=== PATIENT | female | born 1995 | race Caucasian/White ===

== ENCOUNTER 2022-07-27 03:32 | Inpatient (IN) | payer OTHER, SELFPAY ==
[2022-07-27] VITALS (72 sets, daily range): BP systolic 85–142; BP diastolic 30–106; PULSE 56–188; RESP 16–18; TEMP 36.4–37.1; O2SAT 95–100; BMI 36.6
[2022-07-27 04:23] LABS: Basophils Percent Auto 0.3 % (0.2-1.2); Eosinophils Absolute Auto 0.1 K/mm3 (0-0.3); Eosinophils Percent Auto 0.7 % (0-4.4); Hematocrit 35.1 % (37.0-47.0); Immature Granulocyte Absolute 0.09 K/mm3 (0.00-0.031); Immature Granulocyte Percent A 0.8 % (0-0.5); Lymphocytes Absolute Auto 1.54 K/mm3 (0.9-3.2); Mean Corpuscular HGB Conc 34.2 g/dl (32-36); Mean Corpuscular Hemoglobin 31.7 pg (26-34); Mean Corpuscular Volume 92.9 fl (80-100); Mean Platelet Volume 10.6 fl (7.4-10.4); Monocytes Absolute Auto 0.7 K/mm3 (0.1-0.6); Monocytes Percent Auto 6.1 % (2.6-8.5); Neutrophils Absolute Auto 9.4 K/mm3 (1.3-6.7); Neutrophils Percent Auto 79.1 % (45.5-73.1); Platelet Count Result 244 k/mm3 (150-375); Red Blood Count 3.78 M/mm3 (4.2-5.4); Red Cell Distribution Width 12.7 % (11.5-14.5); White Blood Count 11.9 K/mm3 (4.5-10.0)
[2022-07-27] MEDS: LACTATED RINGERS 1,000 ML 125 ML IV CONT ×2 (08:20→13:48)
[2022-07-27] MEDS: OXYTOCIN 30 UNITS/NS 500 ML 30 UNITS/500 ML BAG IV CONT (08:20)
--- NOTE | 2022-07-27 10:18 | P.HP_ITS ---
H&P: HPI History of Present Illness Date/Time: 07/27/22 10:18 Chief Complaint: SROM Narrative: presented with SROM at 0200. uncomplicated. gbs neg. pitocin started at 0800 for no cervical change from 0600. Review of Systems Review of Systems: All systems reviewed & are unremarkable except as noted in HPI and below [facility] Family History Family History (Updated 07/16/22 @ 14:37 by Lizzeth Donis RN) Father Lung cancer Mother Heart attack Other Unknown family medical history Social History Social History Smoking status: Former smoker Tobacco type: cigarettes Second hand tobacco smoke exposure: No Substance use: never Lack of Transportation: No Lack of Food: Never True Current Housing: I Have Housing Concerned About Future Housing: No Difficulty Paying Gas/Electric Bills: No Difficulty Paying for Meds: No Currently Unemployed: No Education: High School Diploma/GED Difficulty w/ Childcare or Family Care: No Spiritual care concerns: No Meds Home Medications and Allergies Home Medications Medication Instructions Recorded Confirmed Type vit#24-iron amino acid 1 tablet PO DAILY 07/16/22 07/27/22 History chelat-folic acid 30 mg-975 mcg tablet Allergies Allergy/AdvReac Type Severity Reaction Status Date / Time No Known Allergies Allergy Verified 07/27/22 04:17 Vital Signs Vital Signs - 24 hr 07/27/22 03:41 07/27/22 04:00 07/27/22 06:38 Temperature 97.7 F 97.6 F Pulse Rate 103 H Blood Pressure 121/74 Oxygen Delivery 07/27/22 08:22 07/27/22 09:04 07/27/22 04:09 Temperature 97.6 F Pulse Rate 71 Blood Pressure 131/97 H Oxygen Delivery Room Air Exam Const: General: no acute distress Resp: Effort & Inspection: normal respiratory effort Auscultation: clear to auscultation bilaterally Cardio: Rate: regular rate Rhythm: regular rhythm GI: GI Palp: Yes Soft to palpation Extrem: General: normal to inspection H&P: Results Labs Labs: Short CBC 07/27/22 Range/Units 04:19 WBC 11.9 H (4.5-10.0) K/mm3 Hgb 12.0 (12.0-15.0) g/dL Hct 35.1 L (37.0-47.0) % Plt Count 244 (150-375) k/mm3 Assessment and Plan Assessment and plan (1) SROM (spontaneous rupture of membranes): Status: Acute Plan gbs neg pitocin augmentation FHT category 1 anticipate
[2022-07-27] MEDS: ACETAMINOPHEN 500 MG TABLET 1000 MG PO (11:54)
[2022-07-27] MEDS: fentaNYL CITRATE INJ (*CRX) 100 MCG/2 ML VIAL IV PUSH (13:35)
--- NOTE | 2022-07-27 13:49 | WPDANESEPP ---
Anes - Eval Pre Procedure Procedure: Labor Pain Management Date/Time: 07/27/22 13:49 Surgeon: Fabian Preop Diagnosis: Pain during labor Pre Op Diagnosis: Ruptured membranes Patient Data Age: 27 Gender: F Height: 1.57 m Weight: 90.9 kg Last Vital Signs Temp 97.8 F 07/27/22 13:30 Pulse 71 07/27/22 13:41 BP 115/54 L 07/27/22 13:41 Pulse Ox 99 07/27/22 13:47 O2 Del Method Room Air 07/27/22 04:09 Allergies Allergy/AdvReac Type Severity Reaction Status Date / Time No Known Allergies Allergy Verified 07/27/22 04:17 Home Medications Medication Instructions Recorded Confirmed Type vit#24-iron amino acid 1 tablet PO DAILY 07/16/22 07/27/22 History chelat-folic acid 30 mg-975 mcg tablet Laboratory Tests 07/27/22 07/27/22 07/27/22 04:19 04:19 04:19 WBC 11.9 K/mm3 H K/mm3 (4.5-10.0) RBC 3.78 M/mm3 L M/mm3 (4.2-5.4) Hgb 12.0 g/dL g/dL (12.0-15.0) Hct 35.1 % L % (37.0-47.0) MCV 92.9 fl fl (80-100) MCH 31.7 pg pg (26-34) MCHC 34.2 g/dl g/dl (32-36) RDW 12.7 % % (11.5-14.5) Plt Count 244 k/mm3 k/mm3 (150-375) MPV 10.6 fl H fl (7.4-10.4) Immature Gran % (Auto) 0.8 % H % (0-0.5) Neut % (Auto) 79.1 % H % (45.5-73.1) Lymph % (Auto) 13.0 % L % (18.3-44.2) [place] % (Auto) 6.1 % % (2.6-8.5) Eos % (Auto) 0.7 % % (0-4.4) Baso % (Auto) 0.3 % % (0.2-1.2) Lymph # (Auto) 1.54 K/mm3 K/mm3 (0.9-3.2) [place] # (Auto) 0.7 K/mm3 H K/mm3 (0.1-0.6) Eos # (Auto) 0.1 K/mm3 K/mm3 (0-0.3) Baso # (Auto) 0.0 K/mm3 K/mm3 (0.0-0.1) Abs Immat Gran (auto) 0.09 K/mm3 H K/mm3 (0.00-0.031) Absolute Neuts (auto) 9.4 K/mm3 H K/mm3 (1.3-6.7) Absolute Nucleated RBC 0.0 K/mm3 K/mm3 (0.0-0.012) Nucleated RBC % 0.0 % % (0.0-0.2) RPR Pending Blood Type O Positive Antibody Screen Negative Patient hx anesthesia problems: none Family hx anesthesia problems: none Results Review: All pre-operative results and documents have been reviewed as part of the pre-operative evaluation. [facility] Past Medical History Medical History (Updated 07/27/22 @ 13:51 by Esperanza Martinez CRNA) Tobacco abuse Family History Family History (Updated 07/16/22 @ 14:37 by Lizzeth Donis RN) Father Lung cancer Mother Heart attack Other Unknown family medical history Social History Social History Smoking status: Former smoker Tobacco type: cigarettes Second hand tobacco smoke exposure: No Substance use: never Lack of Transportation: No Lack of Food: Never True Current Housing: I Have Housing Concerned About Future Housing: No Difficulty Paying Gas/Electric Bills: No Difficulty Paying for Meds: No Currently Unemployed: No Education: High School Diploma/GED Difficulty w/ Childcare or Family Care: No Spiritual care concerns: No Exam Day of Procedure 07/27/22 13:49
--- NOTE | 2022-07-27 13:52 | WPDANESEPP ---
Anes - Eval Pre Procedure Procedure: labor pain management Date/Time: 07/27/22 13:52 Surgeon: francisco Preop Diagnosis: pain during labor Pre Op Diagnosis: Ruptured membranes Patient Data Age: 27 Gender: F Height: 1.57 m Weight: 90.9 kg Last Vital Signs Temp 97.8 F 07/27/22 13:30 Pulse 71 07/27/22 13:41 BP 115/54 L 07/27/22 13:41 Pulse Ox 99 07/27/22 13:47 O2 Del Method Room Air 07/27/22 04:09 Allergies Allergy/AdvReac Type Severity Reaction Status Date / Time No Known Allergies Allergy Verified 07/27/22 04:17 Home Medications Medication Instructions Recorded Confirmed Type vit#24-iron amino acid 1 tablet PO DAILY 07/16/22 07/27/22 History chelat-folic acid 30 mg-975 mcg tablet Laboratory Tests 07/27/22 07/27/22 07/27/22 04:19 04:19 04:19 WBC 11.9 K/mm3 H K/mm3 (4.5-10.0) RBC 3.78 M/mm3 L M/mm3 (4.2-5.4) Hgb 12.0 g/dL g/dL (12.0-15.0) Hct 35.1 % L % (37.0-47.0) MCV 92.9 fl fl (80-100) MCH 31.7 pg pg (26-34) MCHC 34.2 g/dl g/dl (32-36) RDW 12.7 % % (11.5-14.5) Plt Count 244 k/mm3 k/mm3 (150-375) MPV 10.6 fl H fl (7.4-10.4) Immature Gran % (Auto) 0.8 % H % (0-0.5) Neut % (Auto) 79.1 % H % (45.5-73.1) Lymph % (Auto) 13.0 % L % (18.3-44.2) [place] % (Auto) 6.1 % % (2.6-8.5) Eos % (Auto) 0.7 % % (0-4.4) Baso % (Auto) 0.3 % % (0.2-1.2) Lymph # (Auto) 1.54 K/mm3 K/mm3 (0.9-3.2) [place] # (Auto) 0.7 K/mm3 H K/mm3 (0.1-0.6) Eos # (Auto) 0.1 K/mm3 K/mm3 (0-0.3) Baso # (Auto) 0.0 K/mm3 K/mm3 (0.0-0.1) Abs Immat Gran (auto) 0.09 K/mm3 H K/mm3 (0.00-0.031) Absolute Neuts (auto) 9.4 K/mm3 H K/mm3 (1.3-6.7) Absolute Nucleated RBC 0.0 K/mm3 K/mm3 (0.0-0.012) Nucleated RBC % 0.0 % % (0.0-0.2) RPR Pending Blood Type O Positive Antibody Screen Negative Patient hx anesthesia problems: none Family hx anesthesia problems: none Results Review: All pre-operative results and documents have been reviewed as part of the pre-operative evaluation. [facility] Past Medical History Medical History (Updated 07/27/22 @ 13:51 by Esperanza Martinze CRNA) Tobacco abuse Family History Family History (Updated 07/16/22 @ 14:37 by Lizzeth Donis RN) Father Lung cancer Mother Heart attack Other Unknown family medical history Social History Social History Smoking status: Former smoker Tobacco type: cigarettes Second hand tobacco smoke exposure: No Substance use: never Lack of Transportation: No Lack of Food: Never True Current Housing: I Have Housing Concerned About Future Housing: No Difficulty Paying Gas/Electric Bills: No Difficulty Paying for Meds: No Currently Unemployed: No Education: High School Diploma/GED Difficulty w/ Childcare or Family Care: No Spiritual care concerns: No Exam Day of Procedure 07/27/22 13:52
[2022-07-27] MEDS: ePHEDrine sulfate INJ 50 MG/ML AMPUL IV PUSH (14:37)
[2022-07-27] MEDS: ONDANSETRON INJ 4 MG/2 ML VIAL IV PUSH (16:10)
--- NOTE | 2022-07-27 16:42 | PM.OBPRVD ---
OB - Delivery Note Procedure Delivery date: 07/27/22 Procedure: Delivery augmentation: Pitocin Delivery monitor: External FHT and External Uterine Route of delivery: Laceration Description: Perineal - 2nd Degree Delivery repair: vicryl Quantitative Blood Loss (ml): 110 Anesthesia type: Epidural Disposition: Floor Narrative: The baby delivered precipitously 2 minutes prior to my arrival. Mother and baby both stable. I delivered the placenta and repaired a small second degree laceration. EBL 110cc. Baby Date of : 07/27/22 Time of : 16:26 Weeks of gestation at delivery: 39 Infant gender: Female Weight (pounds): 6 Weight (ounces): 5 presentation: vertex Placenta delivery description: Spontaneous Cord Vessel Description: 3 Vessels, Nuchal Cord and Delayed Cord Clamping score one minute: 8 score five minutes: 9
[2022-07-27] MEDS: OXYTOCIN 30 UNITS/NS 500 ML 30 UNITS/500 ML BAG 125 UNITS IV CONT (16:50)
--- NOTE | 2022-07-27 20:38 | OBPPTRN ---
07/27/2022 at 1999. Patient in wheelchair transferred to first floor post room #112. Support person present. Patient oriented to unit, room, information board, rooming in, admission packet and security measures. Patient verbalizes understanding.
[2022-07-28] MEDS: IBUPROFEN 600 MG TABLET PO (04:28)
[2022-07-28] MEDS: ACETAMINOPHEN 325 MG TABLET 650 MG PO (04:28)
[2022-07-28 04:30] LABS: Hematocrit 31.1 % (37.0-47.0); Hemoglobin 10.6 g/dL (12.0-15.0)
[2022-07-28 04:39] VITALS: BP 98/54; PULSE 79; RESP 16; TEMP 36.4; O2SAT 98
--- NOTE | 2022-07-28 06:38 | OBPPTRN ---
Patient transferred to post room #284 via wheelchair. Support person present. Oriented to unit, room, information board, rooming in, admission packet and security measures. Patient verbalizes understanding.
[2022-07-28 07:00] VITALS: BP 127/80; PULSE 85; RESP 16; TEMP 36.9; O2SAT 99
--- NOTE | 2022-07-28 07:44 | WPDANLDPN2 ---
Anes-Prog Note L&D Date/Time: 07/28/22 07:44 Comfortable throughout: labor and delivery Neuraxial method: epidural Epidural/Spinal procedure site: clean & non-tender Neuro status: Neuro function grossly intact. Cardiovascular status: normal Respiratory status: normal Airway patency: baseline Mental status: baseline Post-Op hydration status: normal Vital Signs: Last Vital Signs Temp 98.5 F 07/28/22 07:00 Pulse 85 07/28/22 07:00 Resp 16 07/28/22 07:00 BP 127/80 07/28/22 07:00 Pulse Ox 99 07/28/22 07:00 O2 Del Method Room Air 07/28/22 07:00 Pain score (VAS): 0/10 I/O: Intake & Output 07/27/22 07/27/22 07/28/22 15:59 23:59 07:59 Intake Total 1000 500 Output Total 110 Balance 1000 390 Post-procedural complaints: none Patient feedback: Patient satisfied with anesthetic care.
[2022-07-28] MEDS: TETANUS,DIPHTHERIA,AC PERTUSSIS ADULT (0.5 ML) BOOSTRIX IM (08:24)
[2022-07-28] MEDS: MULTIVIT/MIN/PREN/FOL AC/IRON TABLET 1 TAB PO (08:24)
[2022-07-28] MEDS: DOCUSATE SODIUM 100 MG CAPSULE PO (08:24)
--- NOTE | 2022-07-28 08:30 | PC.NURSE ---
Breast pump provided due to maternal request. Instructions given on cleaning, care, usage, that there should be no pain, pumping schedule for milk production, collection, and storage of human milk. Patient was assessed for correct placement, flange size, to pump for comfort and nipple stretching/stimulation for adequate milk production every 3 hours (8 times in 24 hours) 1-2 times at night.
--- NOTE | 2022-07-28 09:39 | PC.NURSE ---
[id number] Entered the room after consult requested. RN is demonstrating how to respond to her after a spit up. Introductions were made, then consulted with patient to assess needs related to . Mother led the conversation with her?plans to feed?her infant and the?experience so far. Mother states she breastfed her first for a week and stopped related to pain with . Resources provided for inpatient and outpatient services with name written on the white board. Mother voiced understanding of information and is receptive to assistance since her will not wake to breastfeed. Mother works well with her infant with encouragement and education. Encouraged understanding of the benefits of skin to skin (demonstrating unwrapping and placing upright on her chest), stimulating with massage touch, changing positions to encourage wakefulness, how to watch for early feeding cues, responsive feeding, feeding on demand (aiming for 8-12 times in 24 hours, about every 2-3 hours), milk production, hand expression, building/maintaining a milk supply, duration of feeding, signs of adequate intake/output and how to record on the feeding sheet. Reinforced teaching of changing positioning, massage touch and stimulating to breastfeed. RN changed two diapers during the stimulation phase to wake infant. Encouraged mother to allow to be skin to skin with breast not covered in a bra, gown and robe so the can use her senses to look for the breast. Once feeding cues were visualized by the mother we reviewed positioning and ear, shoulder, hip alignment, supporting the breast to facilitate a deep latch, asymmetrical latch (off-center), leading with the chin with a big, open, wide gape and body close to mother. Infant latched optimally to the right breast in football position on/off and did not maintain for longer than a few sucks. A swallow was visualized and heard with education to mother. Infant attempts to latch shallow and mother was encouraged to maintain a deep latch giving careful awareness to a big, open mouth with tongue down, chin buried with the nose near the breast. Education given to mother of how to visualize suck/swallow ratios and listen for drinking at the breast. After attempting to maintain latch to the right breast, infant was placed skin to skin, feeding cues were visualized, then infant was positioned to the left breast using football positioning. A few attempts were made to encourage to latch optimally with a deep latch. was able to maintain latch without discomfort to mother. Nipple care reviewed with optimal latch and good positioning. Reminding mother of comfort measures of healing with a warm and wet washcloth to rinse breast, then leave open to air-dry as needed. Reviewed good handwashing when or touching the breast/nipples to prevent infection. Resources used to facilitate learning were used with the tool. Mother voiced understanding of skin to skin, stimulating with massage touch, responsive feedings, hand expressed colostrum, talking to infant to encourage if it has been 2 -2.5 hours since the start of the last , to call if does not latch, or if there is discomfort with . Mother voiced understanding of information, demonstrated learning and will call if there is a request for assistance. Father of baby is on a training zoom meeting. Reported to the primary RN along with to encourage mother to obtain a deep latch and assess for pain with .
[2022-07-28 12:14] VITALS: BP 116/70; PULSE 73; RESP 16; TEMP 37; O2SAT 99
[2022-07-28 12:19] LABS: Rapid Plasma Reagin Non-Reactive (NonReactive)
--- NOTE | 2022-07-28 12:26 | PM.OBPNVD ---
OB - PN: Subj Subjective Date/time seen: 07/28/22 12:26 Patient comments: no complaints baby status: doing well OB - PN: Obj Data Labs 07/28/22 04:23 Labs: Laboratory Results - last 24 hr 07/27/22 07/28/22 04:19 04:23 Hgb 10.6 L Hct 31.1 L RPR Non-reactive OB - PN A/P Plan day: 1 Plan: routine care Time Spent With Patient Time: Total time spent is greater than 50% in coordination of care (as documented) at patient's floor/unit and/or counseling patient: Time with patient: less than 15 minutes Review of Systems Review of Systems: All systems reviewed & are unremarkable except as noted in HPI and below Exam Narrative: Fundus firm and vaginal flow controlled. No lower ext redness, warmth, or edema. Negative homans. Const: General: comfortable Chest: Breast/axilla inspection: normal inspection of the breasts Resp: Effort & Inspection: normal respiratory effort Cardio: Rate: regular rate GI: GI Palp: Yes Soft to palpation Psych: Appearance: grossly normal Affect: normal affect Attitude: cooperative Thought content: Yes Normal thought content present Judgement: Good judgement present (Psych)
--- NOTE | 2022-07-28 12:28 | PM.OBDSVD ---
DS: Admitting Diagnosis Discharge Date 07/28/22 Admitting Diagnosis Labor DS: Discharge Diagnosis Discharge Diagnosis (1) Vaginal delivery: Code(s): O80 - Encounter for full-term uncomplicated delivery Status: Acute OB - DS: Summary OB Procedures : None OB Procedures Intrapartum: Spontaneous Vag Delivery OB Procedures: : None Time Spent with Patient Time attestation: Total time spent providing and/or coordinating discharge services: DS: Data Data Completed and Pending Labs on day of discharge: Labs from last 24 hours 07/28/22 07/27/22 04:23 04:19 Hgb 10.6 L Hct 31.1 L RPR Non-reactive Discharge Plan Discharge Attending physician on discharge: Ruby Caruso Discharging Clinician: Aminata Reyez Patient Disposition: Home, Self-Care Activity: pelvic rest Diet: as tolerated Patient Instructions: Antibiotic Form Stand Alone Forms: General Discharge Information Follow-up/Referrals: Aminata Reyez CNM [Certified Nurse [employer]] - Discharge Medications: Continued Complete 30-975 mg-mcg Tablet 1 tablet PO DAILY Date of admission: 07/27/22 03:32 Primary Care Provider: PHYSICIAN,SOFTWARE LICENSING SPECIALIST Admitting Provider: Matty Peralta Attending physician on admission: Matty Peralta Condition: Stable
[2022-07-28 15:10] VITALS: BP 102/65; PULSE 75; RESP 16; TEMP 36.9; O2SAT 99
[2022-07-29 11:34] VITALS: BP 121/65; PULSE 97; RESP 18; TEMP 36.7; O2SAT 100
== END 2022-07-28 18:40 | disposition home or self-care (01) | DRG 560 ==
LOC: ANHLDR 04:00 → ANHOB2 07-28 12:28 → ANHLDR 07-29 09:33 → ANHOB2 07-29 09:33 → ANHOBPP 07-29 09:33
PROVIDERS: Obstetrics & Gynecology; Admitting Provider Obstetrics & Gynecology; Visit Provider Advanced Practice Midwife
DX: O69.81X0 Labor and delivery complicated by cord around neck, without compression, not applicable or unspecified (principal); Z37.0 Single live birth; Z3A.39 39 weeks gestation of pregnancy; O36.8330 Maternal care for abnormalities of the fetal heart rate or rhythm, third trimester, not applicable or unspecified
CPT/HCPCS: 36415; 84112; 85014; 85018; 85025; 86592; 86850; 86900; 86901; 90715; A9270; J2405; J2590; J2795; J3010; J7120

== ENCOUNTER 2022-09-05 21:54 | Emergency (ER) | payer OTHER, SELFPAY ==
[2022-09-05 21:59] VITALS: BP 125/65; PULSE 100; RESP 20; TEMP 36.9; O2SAT 100
--- NOTE | 2022-09-05 22:10 | ED.GENADULT ---
HPI - General Adult General Chief complaint: Unspecified Stated complaint: Mastitis Time Seen by Provider: 09/05/22 22:10 History of Present Illness HPI narrative: The patient is a 27-year-old woman who is currently breast-feeding, for the past 6 weeks. Her milk production is decreasing. Over the last 1-2 days, the patient has had symptoms of left breast pain in the upper outer quadrant, increasing in intensity today. No purulent drainage from the nipple. She has tried compresses, Epsom salt, and massaging the breast. She has taken Tylenol and ibuprofen. She feels hot and cold but no rain fevers or chills or diaphoresis. Also with a headache. No prior similar symptoms. No redness of the breast tissue. Related Data Home Medications Medication Instructions Recorded Confirmed vit#24-iron amino acid 1 tablet PO DAILY 07/16/22 09/05/22 chelat-folic acid 30 mg-975 mcg tablet Allergies Allergy/AdvReac Type Severity Reaction Status Date / Time No Known Allergies Allergy Verified 07/27/22 04:17 Review of Systems Review of Systems: All systems reviewed & are unremarkable except as noted in HPI and below Constitutional: Constitutional: Reports as per HPI, Reports no additional constitutional complaints, Denies chills, Denies excessive sweating, Denies fatigue, Denies fever(s), Denies headache(s) and Denies weakness Eyes: Eyes: Reports as per HPI, Reports no additional eye complaints, Denies change in vision and Denies photophobia ENT: Reports system reviewed and no additional complaints, except as documented, Reports as per HPI, Denies dysphagia, Denies vertigo, Denies dizziness, Denies headache(s), Denies lip swelling, Denies nasal congestion, Denies sore throat, Denies throat swelling and Denies tongue swelling Cardiovascular: Cardiovascular: Reports as per HPI, Reports no additional cardiovascular complaints, Denies chest pain, Denies syncope, Denies rapid heart rate and Denies dyspnea Respiratory: Respiratory: Reports as per HPI, Reports no additional respiratory complaints, Denies chest congestion, Denies cough, Denies dyspnea and Denies wheezing Gastrointestinal: Gastrointestinal: Reports as per HPI, Reports no additional gastrointestinal complaints, Denies abdominal pain, Denies constipation, Denies dysphagia, Denies diarrhea, Denies nausea and Denies vomiting Genitourinary: Genitourinary: Reports as per HPI, Denies hematuria, Denies urinary frequency, Denies dysuria, Denies urinary incontinence and Denies urinary urgency Musculoskeletal: Musculoskeletal: Reports no additional musculoskeletal complaints, Denies back pain, Denies myalgias, Denies arthralgias, Denies joint swelling and Denies numbness Integumentary/Breasts: Skin/Breast: Reports system reviewed and no additional complaints, except as docu, Denies pruritus, Denies erythema, Denies rash and Denies skin ulcer Neurologic: Reports system reviewed and no additional complaints, except as documented, Reports as per HPI, Denies confusion, Denies vertigo, Denies dizziness, Denies syncope, Denies headache(s), Denies focal weakness, Denies numbness and Denies weakness Psychiatric: Psychiatric: Reports as per HPI, Denies anxiety, Denies confusion, Denies depression, Denies homicidal ideation and Denies suicidal ideation Endocrine: Endocrine: Reports no additional endocrine complaints, Denies excessive sweating, Denies fatigue, Denies polydipsia and Denies polyuria Hematologic/Lymphatic: Hematologic/Lymphatic: Reports no additional hematologic/lymphatic complaints, Denies easy bleeding and Denies easy bruising Allergic/Immunologic: Allergic/Immunologic: Reports no additional allergic/immunologic complaints, Denies lip swelling, Denies throat swelling, Denies tongue swelling and Denies wheezing PMFSH Past Medical History Medical History Tobacco abuse Family History Family History (Reviewed 09/05/22 @ 22
[2022-09-05] MEDS: CEPHALEXIN 500 MG CAPSULE PO (22:30)
[2022-09-05 22:34] VITALS: BP 122/85; PULSE 100; RESP 20; TEMP 37; O2SAT 100
== END 2022-09-05 22:35 | disposition home or self-care (01) ==
PROVIDERS: Emergency Provider Emergency Medicine
DX: N61.0 Mastitis without abscess (principal); Z87.891 Personal history of nicotine dependence
CPT/HCPCS: 99283; A9270

== ENCOUNTER 2023-10-23 16:51 | Outpatient (CLI) | payer OTHER, SELFPAY ==
--- NOTE | ~2023-10-23 | US_ITS ---
EXAMINATION: US thyroid DATE: 10/23/2023 17:26 INDICATION: Hypothyroidism TECHNIQUE: Multiple ultrasound images of the thyroid were obtained. COMPARISON: None. FINDINGS: The right thyroid lobe measures 3.5 x 1.1 x 1.0 cm. The left thyroid lobe measures 2.7 x 0.9 x 0.6 c m. Isthmus measures 3 mm in thickness. Solid wider than tall 7 mm hypoechoic nodule with smooth margins and without echogenic foci at the superior right thyroid (TI-RADS 4, moderately suspicious , FNA if > =1.5 cm, annual followup is >=1 cm) There is normal echotexture, echogenicity and vascular flow thro ughout the thyroid gland. IMPRESSION: 1. Thyroid is small with 7 mm BI-RADS 4 right thyroid nodule which remains below size threshold for e ither biopsy or follow-up. Reviewed, dictated and finalized at location A. IMPRESSION: 1. Thyroid is small with 7 mm BI-RADS 4 right thyroid nodule which remains belo w size threshold for either biopsy or follow-up.
== END 2023-10-23 16:52 | disposition home or self-care (01) ==
LOC: ANHIMG 16:51
PROVIDERS: PCP Registered Nurse; Visit Provider Registered Nurse
DX: E03.9 Hypothyroidism, unspecified (principal); E04.1 Nontoxic single thyroid nodule
CPT/HCPCS: 76536